=== PATIENT | male | born 1965 | race African-American/Black ===

== ENCOUNTER 2020-06-01 16:38 | Emergency (ER) | payer OTHER ==
--- NOTE | 2020-06-01 17:09 | PDOC ---
History of Present Illness - General Chief Complaint: Pain, Acute Stated Complaint: DVT Time Seen by Provider: 06/01/20 17:07 History Source: Patient Exam Limitations: No Limitations - History of Present Illness Initial Comments: 06/01/20 17:07 HPI: This is a 44 y/o male with a PMH of DVT (years ago), HTN, COPD, HLD, and heroin use presenting to the ED from [facility] for a duplex ultrasound of his lower extremities to check for a DVT. He reports a history of DVT years ago in his r. calf and was anticoagulated. He is asymptomatic at this time. Denies chest pain, SOB, N/V, abdominal pain, pain in his calf, lower extremity swelling or redness. He states that his only complaint is feeling restless because he is in withdrawal. ROS: GENERAL/CONSTITUTIONAL: No fever/chills. No weakness. CARDIOVASCULAR: No chest pain or shortness of breath. RESPIRATORY: No cough, wheezing, or hemoptysis. GASTROINTESTINAL: No nausea, vomiting, diarrhea or constipation. GENITOURINARY: No dysuria, frequency, or change in urination. MUSCULOSKELETAL: No joint or muscle swelling or pain. No neck or back pain. SKIN: No rash NEUROLOGIC: No headache, vertigo, loss of consciousness, or change in strength/sensation. ENDOCRINE: No increased thirst. No abnormal weight change. HEMATOLOGIC/LYMPHATIC: Yes history of blood clots. ALLERGIC/IMMUNOLOGIC: No hives or skin allergy. PMH: DVT, HTN, HLD, COPD, heroin abuse PSx: Denied Social Hx: Admits to heroin, tobacco Meds: Denied Allergies: Penicillin PE: GENERAL: Awake, alert, and fully oriented, in no acute distress. Patient pacing in the hallway. HEAD: No signs of trauma EYES: PERRLA, EOMI, no lymphadenopathy, JVD, or masses LUNGS: Breath sounds equal, bilateral expiratory wheezing throughout HEART: Regular rate and rhythm, normal S1 and S2 ABDOMEN: Soft, nontender, normoactive bowel sounds. EXTREMITIES: Normal range of motion, no edema, erythema, or tenderness NEUROLOGICAL: Cranial nerves II through XII grossly intact. Normal speech, normal gait 06/01/20 17:38 MDM: This is a 44 y/o male with a PMH of DVT (years ago), HTN, COPD, HLD, and heroin use presenting to the ED from [facility] for a duplex ultrasound of his lower extremities to check for a DVT. - PT not complaining of SOB, lower extremity pain, swelling or redness - Will get a duplex U/S of R leg and send back to [facility] 06/01/20 18:55 DUPLEX: IMPRESSION: No evidence of deep venous thrombosis. 06/01/20 19:01 - Spoke with Dr. Bowens. Pt ok to d/c back to [facility]. Past History - Medical History Allergies/Adverse Reactions: Allergies Allergy/AdvReac Type Severity Reaction Status Date / Time Penicillins Allergy Severe Swelling Verified 06/01/20 16:50 Home Medications: Ambulatory Orders NK [No Known Home Medication] 06/01/20 Anemia: No Asthma: No Cancer: No Cardiac Disorders: No CVA: No COPD: Yes CHF: No Dementia: No Diabetes: No GI Disorders: No Disorders: No HTN: Yes Hypercholesterolemia: Yes Kidney Stones: No Liver Disease: No Psychiatric Problems: Yes (cocaine, fem,mop,bup abuse.) Seizures: No Thyroid Disease: No - Surgical History Abdominal Surgery: No Appendectomy: Yes Cardiac Surgery: No Cholecystectomy: No Lung Surgery: No Neurologic Surgery: No Orthopedic Surgery: No - Reproductive History Testicular Surgery: No - Psycho-Social/Smoking History Smoking History: Current every day smoker Have you smoked in the past 12 months: Yes Number of Cigarettes Smoked Daily: 10 Information on smoking cessation initiated: No 'Breaking Loose' booklet given: 06/01/20 - Substance Abuse Hx (Audit-C & DAST Scrn) How often the patient has a drink containing alcohol: Never Score: In Men: 4 or > Positive; In Women: 3 or > Positive: 0 Screen Result (Pos requires Nsg. Audit-10AR): Negative In the last yr the pt used illegal drug/Rx for NonMed reason: Yes Score: Yes response is considered Positive: 1 Screen Result (Positive result requires Nsg. DAST-10): Positive *Physical Exam - Vital Signs Last Vital Signs Temp Pulse Resp BP Pulse Ox 96.3 F L 76 16 181/116 H 100 06/01/20 16:52 06/01/20 16:52 06/01/20 16:52 06/01/20 16:52 06/01/20 16:52 Discharge - Discharge Information Problems reviewed: Yes Clinical Impression/Diagnosis: History of DVT of lower extremity, Leg pain, right Condition: Stable Disposition: HOME - Admission No - Follow up/Referral - Patient Discharge Instructions Patient Printed Discharge Instructions: DI for Opioid Addiction, DI for Leg Pain Additional Instructions: You came to the ED for a duplex study of your lower extremities to rule out a DVT. - You weren't complaining of any chest pain, SOB, or lower leg pain while you were in the department. You are ok to d/c back to [facility]. - Post Discharge Activity
--- NOTE | 2020-06-01 17:52 | PDOC ---
Documentation entered by Laurence Augustin SCRIBE, acting as scribe for Tasha Price MD. Tasha Price MD: This documentation has been prepared by the Bhargavi garcia Sydney, SCRIBE, under my direction and personally reviewed by me in its entirety. I confirm that the documentation accurately reflects all work, treatment, procedures, and medical decision making performed by me. Attending Attestation - Resident Resident Name: Brii Combs - ED Attending Attestation I have performed the following: I have examined & evaluated the patient, The case was reviewed & discussed with the resident, I agree w/resident's findings & plan, Exceptions are as noted - HPI HPI: 06/01/20 17:28 Patient is a 55 year old male with a significant past medical history of HTN, DVT (R leg), COPD, heroin abuse who presents to the ED from [facility] for an ultrasound of his lower legs. Patient endorses restlessness secondary to heroin withdrawal. Denies fever, chills, cough, chest pain, nausea, vomiting, diarrhea, co nstipation, or urinary changes. Allergies: penicillins - Physicial Exam PE: 06/01/20 17:44 this 55 male sent in by [facility] to r/o DVT in right leg 06/01/20 17:50 wnwd 55 yo male p/w rt calf pain head ncat neck no cervical midline tenderness lung cta b/l cvs [id number] abdomen no rebound skin warm and dry extremities no deformities,rt calf pain neuro axox3 - Medical Decision Making 06/01/20 17:53 plan duplex doppler 06/01/20 19:01 Duplex doppler of lower legs was NEGATIVE for dvt d/c back to [facility] Discharge - Discharge Information Problems reviewed: Yes Clinical Impression/Diagnosis: History of DVT of lower extremity, Leg pain, right Condition: Stable Disposition: HOME - Admission No - Follow up/Referral - Patient Discharge Instructions Patient Printed Discharge Instructions: DI for Opioid Addiction, DI for Leg Pain Additional Instructions: You came to the ED for a duplex study of your lower extremities to rule out a DVT. - You weren't complaining of any chest pain, SOB, or lower leg pain while you were in the department. You are ok to d/c back to [facility]. - Post Discharge Activity
[2020-06-01 19:49] VITALS: PULSE 63; TEMP 98.1
[2020-06-01] MEDS ORDERED: cloNIDine HCL 0.1 MG TABLET PO ONE (19:52)
[2020-06-01] MEDS ORDERED: ACETAMINOPHEN 650 MG/20.3 ML ORAL SOLUTION (CUPS) PO ONE (19:52)
[2020-06-01] MEDS ORDERED: cloNIDine HCL 0.1 MG TABLET ONE (19:53)
[2020-06-01] MEDS ORDERED: NITROGLYCERIN SUBLINGUAL 1/150 0.4 MG TAB SL ONE (19:53)
[2020-06-01] MEDS ORDERED: ACETAMINOPHEN 325 MG TABLET (FP) ONE (19:53)
[2020-06-01 20:12] VITALS: BP 176/99
== END 2020-06-01 20:20 | disposition short-term general hospital (02) ==
LOC: JER 16:38
DX: M79.604 Pain in right leg (principal); Z86.718 Personal history of other venous thrombosis and embolism
CPT/HCPCS: 93970-TC; 99284-25; J0735